=== PATIENT | female | born 1980 | race Caucasian/White ===

== ENCOUNTER 2017-08-12 10:59 | Inpatient (IN) ==
--- NOTE | 2017-08-11 22:36 | Discharge Summary ---
<Kadi Davis - Last Filed: 08/11/17 22:30> Date of Encounter: 08/11/17 - Discharge Diagnosis (1) Arthritis of knee, left Priority: Primary Status: Acute (2) Status post total knee replacement, left Priority: Primary Status: Acute - Hospital Course Hospital course: Ms. Wu is a 37 year old female - Time Spent with Patient Total time spent providing and/or coordinating discharge services: - Discharge Medications Home Medications: Aspirin Enteric Coated [Aspirin EC] 325 mg PO BID #20 tablet.dr 08/11/17 [Rx] OxyCODONE Immed Rel [Roxicodone 5 MG] 5 mg PO Q6HR PRN 7 Days #28 tablet [Rx] Albuterol Sulfate [Albuterol Inhaler] 2 puff IH Q4HR PRN 08/12/17 [History] Budesonide/Formoterol 160/4.5 [Symbicort 160/4.5] 1 puff IH BID 08/12/17 [ History] Cholecalciferol (D-3) [Vitamin D] 1,000 unit PO DAILY 08/12/17 [History] Cyclobenzaprine HCl 5 mg PO TID PRN 08/12/17 [History] Fexofenadine HCl 180 mg PO DAILY 08/12/17 [History] Multivitamin [One Daily Multivitamin] 1 tab PO DAILY 08/12/17 [History] Topiramate [Trokendi Xr] 25 mg PO DAILY 08/12/17 [History] Allergies/Adverse Reactions: 3 Allergy/AdvReac Type Severity Reaction Status Date / Time glycopyrrolate [From Robinul] Allergy Rash Verified 08/12/17 11:46 IV dye Allergy Rash Uncoded 08/12/17 11:46 Primary care physician: Pineda Winn MD - Patient Status Disposition: Home, Self-Care Condition: Good - Discharge Instructions Follow Up With: Pineda Winn MD [Primary Care Provider] - <Sachin Zuniga - Last Filed: 08/13/17 08:31> Orders not resulted at time of discharge: Pending orders 08/12/17 00:01 XR knee LT limited 1-2V [XR] Routine H/H [Hemoglobin and Hematocrit] [HEME] Routine Date of Encounter: 08/13/17 Time of Encounter: 08:31 - Discharge Diagnosis (1) Arthritis of knee, left Priority: Primary Status: Chronic (2) Status post total knee replacement, left Priority: Primary Status: Acute - Hospital Course Hospital course: Ms. Wu is a 37 year old female Status post revision left total knee The patient had an uneventful postoperative course. They received antibiotics and physical therapy and were discharged in stable condition. There will follow -up in the office in 2 weeks. - Time Spent with Patient Total time spent providing and/or coordinating discharge services: Primary care physician: Pineda Winn MD - Patient Status Functional capacity at discharge: uses cane/walker Overall status at discharge: patient is progressing back to baseline
[2017-08-12] MEDS ORDERED: CeFAZolin Syr 2,000MG/20 ML 2,000 MG/20 ML SYRINGE IVPB ONE (11:25)
[2017-08-12] MEDS ORDERED: Ringers Solution, Lactated 1,000 ML IVC SCH ×3 (11:30→17:40)
--- NOTE | 2017-08-12 11:31 | History & Physical Report ---
Date of Encounter: 08/12/17 Time of Encounter: 11:30 24 Hour HP Update - Instructions Instructions: If the History and Physical is less than 30 days old and was completed prior to A.M. admission and or procedure and has NOT been updated on calendar day of procedure please complete this update prior to performing procedure. - Update Patient reports changes in Medical Condition: No Changes in examination, assessment, or condition: No Changes in Medication: No Preop tests/diagnostics Reviewed: Yes Surgery Remains Indicated: Yes Consent for Planned Operative Procedure(s) Verified: Yes - Pre-Operative Checklist Preoperative Checklist Indicated: No Prophylactic Antibiotic Ordered: Yes Is VTE Prophylaxis Indicated?: Yes
--- NOTE | 2017-08-12 11:55 | Anesthesia Evaluation PreOp ---
Date of Encounter: 08/12/17 Time of Encounter: 11:53 - Past History Planned Operation: Total knee revision Cardiac History: Denies any Significant Hx Pulmonary History: Asthma PROGRAMMER DEVELOPER History: Denies Any Significant HX Other Medical History: Thyroid, GERD Anesthesia History: No Prior Anesthetic Complications Alcohol Use: none Drug use: none Medications and Allergies Aspirin Enteric Coated [Aspirin EC] 325 mg PO BID #20 tablet. 08/11/17 [Rx] OxyCODONE Immed Rel [Roxicodone 5 MG] 5 mg PO Q6HR PRN 7 Days #28 tablet [Rx] Albuterol Sulfate [Albuterol Inhaler] 2 puff IH Q4HR PRN 08/12/17 [History] Budesonide/Formoterol 160/4.5 [Symbicort 160/4.5] 1 puff IH BID 08/12/17 [ History] Cholecalciferol (D-3) [Vitamin D] 1,000 unit PO DAILY 08/12/17 [History] Cyclobenzaprine HCl 5 mg PO TID PRN 08/12/17 [History] Fexofenadine HCl 180 mg PO DAILY 08/12/17 [History] Multivitamin [One Daily Multivitamin] 1 tab PO DAILY 08/12/17 [History] Topiramate [Trokendi Xr] 25 mg PO DAILY 08/12/17 [History] 3 Allergy/AdvReac Type Severity Reaction Status Date / Time glycopyrrolate [From Bj] Allergy Rash Verified 08/12/17 11:46 IV dye Allergy Rash Uncoded 08/12/17 11:46 - Meds/Allergy Pre-op Review Medications Reviewed: Yes Allergies Reviewed: Yes Beta Blockers on Current Med List: No Anesthesia Results - Labs Laboratory Tests 08/06/17 08/06/17 08/06/17 11:05 11:05 11:05 WBC 7.3 Hgb 12.7 Hct 36.2 Plt Count 260 PT 10.7 INR 1.0 APTT 32.6 Sodium 139 Potassium 3.7 Chloride 108 H Carbon Dioxide 23 BUN 12 Creatinine 0.69 Est GFR ( Amer) > 60 Est GFR (Non-Af Amer) > 60 BUN/Creatinine Ratio 17 Serum , Qual 08/06/17 11:05 WBC Hgb Hct Plt Count PT INR APTT Sodium Potassium Chloride Carbon Dioxide BUN Creatinine Est GFR ( Amer) Est GFR (Non-Af Amer) BUN/Creatinine Ratio Serum , Qual Negative Anesthesia Exam Last Vital Signs Temp 98.7 F 08/12/17 11:21 Pulse 83 08/12/17 11:21 Resp 18 08/12/17 11:21 BP 113/81 08/12/17 11:21 Pulse Ox 98 08/12/17 11:21 Weight: 78 kg NPO (# of Hours): > 8 hrs - HEENT Pupil (Motor): Pupils equal, EOMI Mallampati: III Teeth: Normal Oral Opening: Greater than 3 - PROGRAMMER DEVELOPER LOC: Oriented - Cardiac Rhythm: Regular Murmur: None - Pulmonary Breath Sounds: bilateral Clear Respiratory Effort: Symmetrical Anesthesia Assess/Plan ASA Score: 2 Modified [place] Scale for Level of Consciousness: Cooperative, oriented, and tranquil Anesthetic Plan: General, Regional Monitoring Plan: Standard Monitors Recovery Plan: PACU
[2017-08-12] MEDS ORDERED: ROPIVACAINE HCL/PF 0.5% 30 ML VIAL ONE (12:18)
[2017-08-12] MEDS ORDERED: Bupivacaine/Clonidine Syringe 1 EACH SYRINGE ONE (12:23)
[2017-08-12] MEDS ORDERED: *HR* Midazolam HCl 2 MG/2 ML VIAL ONE (12:28)
[2017-08-12] MEDS ORDERED: *HR* FentaNYL (PF) 100 MCG/2 ML VIAL ONE ×2 (12:28→14:13)
--- NOTE | 2017-08-12 12:46 | Anesthesia Procedures ---
Date of Encounter: 08/12/17 Time of Encounter: 12:44 Procedures: Anesthesia - Nerve Block Procedure Date: 08/12/17 Time: 12:44 Allergies/Adv Reactions: glyco, iv dye Surgical Procedure: left robo tka Checklist: Correct Patient Identifier, Correct procedure, History checked Correct side: Left Blood Thinner: No Monitor Applied: EKG, BP, Pulse Oximetry Supplemental Oxygen via Nasal Cannula (L/min): 2 Sedation: Versed (mg): 2 Sedation: Fentanyl (mcg): 100 Indication: Post Op Analgesia Pre-op Neuro Deficits: No Block Type: Other (ipack 20ml, adductor canal 30ml) Catheter placed: No Sterile Technique: Yes Ultrasound used: Yes Anatomy identified: Yes Visual spread of Local: Yes Neuro Stimulation: No Blood on Needle Aspiration: No Smooth Injection of Local: Yes Pain with Injection of Local: No Prep: Chlorhexadine Needle: 21 x 100 mm Stimuplex Local: 0.25% Bupivicaine w/Clonidine 20 mcg/cc (20ml ipack), Ropivacaine, Other (decadron 8mg) Volume (cc): 50 Number of Attempts: 1 Complications: None/effective block Vitals: Vital Signs/O2 Sat/Glucose, Most Recent Temp Pulse Resp BP Pulse Ox 98.7 F 82 16 125/95 99 08/12/17 11:21 08/12/17 12:44 08/12/17 12:44 08/12/17 12:44 08/12/17 12:44
[2017-08-12] MEDS ORDERED: Ondansetron 4 MG/2 ML VIAL ONE (13:25)
[2017-08-12] MEDS ORDERED: *HR* Propofol 200 MG/20 ML VIAL IVP ONE (13:25)
[2017-08-12] MEDS ORDERED: Dexamethasone 4 MG/ML VIAL ONE (13:25)
[2017-08-12] MEDS ORDERED: Lidocaine -MPF 2% 2 ML VIAL ONE (13:25)
[2017-08-12] MEDS ORDERED: Ethanol\\Acetic Acid\\Na Ace\\Ben 1,000 ML IRRIG.SOLN IR ONE (13:43)
[2017-08-12] MEDS ORDERED: Ondansetron 4 MG/2 ML VIAL IVP ONE (13:45)
[2017-08-12] MEDS ORDERED: *HR* Promethazine 25 MG/ML VIAL IVP PRN (13:45)
[2017-08-12] MEDS ORDERED: Naloxone 0.4 MG/ML INJ IVP PRN ×2 (13:45→17:40)
[2017-08-12] MEDS ORDERED: *HR* Meperidine 25 MG/ML SYRINGE IVP PRN (13:45)
[2017-08-12] MEDS ORDERED: *HR* HYDROmorphone 2 MG TABLET PO PRN (13:45)
[2017-08-12] MEDS ORDERED: *HR* OxyCODONE Immed Rel 5 MG TABLET PO PRN (13:45)
[2017-08-12] MEDS ORDERED: Albuterol 2.5 MG/3 ML NEBULIZER IH ONE (13:45)
--- NOTE | 2017-08-12 15:01 | Orthopedic Operative Note ---
Date of procedure: 08/12/17 Pre-op diagnosis: Left knee loosening unicondylar knee replacement, left knee arthritis Post-op diagnosis: same Procedure: Procedure: Left revision robotic-assisted Total knee replacement Estimated blood loss: 400 cc Hardware: Metal and polyethylene replacement. Press-fit [place] Femur: 2 Tibia: 2 PS insert: 16 Patella: 36 Exam Under anesthesia: 5 degree hyperextension 4 degree valgus as calculated by the robot full flexion and no instability Procedural Notes: Loose femoral and tibial components left lateral unicondylar, grade 3 arthritic changes patellofemoral joint. Operative procedure: The patient was brought to the operating room and placed on the operating room table. After general anesthesia was administered the operative knee was examined. Findings were noted in the exam under anesthesia. The operative extremity was prepped and draped in sterile surgical fashion. The patient received IV antibiotics prior to skin incision. A standard midline incision was made centered over the patella. The incision was made through the old incision, through the skin and subcutaneous tissue. A medial parapatellar tendon approach was performed. Care was taken to preserve tissue along the medial aspect of the patella. And to protect the patella tendon. The deep MCL was released off the medial tibia. The infra patella fat pad was excised. The patella was everted and cut was made at the level of the insertion of the quadriceps and patella tendon. The patella was sized 36 the guide was seated and the lug holes are drilled. Knee was brought into flexion. Patient noted to have grade 3 changes undersurface of patella and trochlear groove. Steinmann pins were placed in the tibia and the femur for the tibial and femoral arrays respectively. Checkpoints were also placed in the tibia and the femur for calculation purposes. The knee including the femur and the tibial registered. Osteophytes , ACL and PCL were excised at this point. Extension and flexion were assessed with a valgus stress components were adjusted on the computer to balance the knee. The components were then removed, first the Patty then the femoral and tibial component both components were loose and easily removed without bone loss. Femoral cuts were made first with robotic assistance, these included the anterior cut posterior cuts chamfer cuts. Tibial cut was then performed with robotic assistance as well. Bone fragments were removed, as well as the medial and lateral meniscus. The size 2 femoral guide was seated box cut was made lug holes are drilled. The size 2 tibial tray was seated and prepared with the fin cutter. Trial reduction with the 16 PS Patty revealed extension of 0 degree and 2 degree valgus full flexion. No varus valgus instability. Trial reduction revealed excellent patella tracking. All trial components were removed all bony surfaces were irrigated. The Tibia was seated followed by the femur, The Patty size 16 was seated and secured patella. Patient had similar findings for motion and stability. The knee was closed by the PA. The knee was then irrigated out with 2 L of pulse irrigation. The extensor mechanism was closed with #2 FiberWire suture and #2 PDS suture. The subcutaneous tissue was then irrigated and closed deep with #1 PDS suture superficially with 0 PDS suture and skin was closed with zip tie The patient was then placed in a sterile dressing and a postoperative brace extubated and transferred to recovery room in stable condition. Anesthesia: GETA Surgeon: Sachin Zuniga Was there an operations and intelligence assistant present: Yes Hvac/R Service Technician: Kadi Davis Estimated blood loss (cc): 400 Condition: stable Disposition: PACU
[2017-08-12] MEDS: *HR* Morphine 2 MG/ML SYRINGE IVP PRN ×2 (15:42→15:58)
[2017-08-12 16:23] LABS: Hemoglobin 13.5 g/dL (11.5-15.4)
--- NOTE | 2017-08-12 16:40 | Anesthesia Evaluation Post Op ---
Date of Encounter: 08/12/17 Time of Encounter: 16:39 - Vital Signs Vital Signs: Last Vital Signs Temp 99.0 F 08/12/17 15:53 Pulse 115 08/12/17 16:33 Resp 12 08/12/17 16:33 BP 134/90 08/12/17 16:33 Pulse Ox 99 08/12/17 16:33 - Lungs Lungs: Clear Ascult./Percussion - Airway Airway: Non-obstructed - Cardiovascular Regular Rate - Mental Status Mental Status: Alert & Oriented, Answers Appropriately - Pain Pain Scale: 4 - Nausea Vomiting Nausea Vomiting: Responds to treatment with IV Meds - Hydration Hydration: Ice chips - Discharge PostOp Status: Transfer Patient to floor
[2017-08-12] MEDS ORDERED: Temazepam 15 MG CAPSULE PO PRN (17:40)
[2017-08-12] MEDS ORDERED: Sennosides 8.6 MG TABLET PO PRN (17:40)
[2017-08-12] MEDS ORDERED: traMADol 50 MG TABLET PO PRN (17:40)
[2017-08-12] MEDS ORDERED: Ondansetron 4 MG/2 ML VIAL IVP PRN (17:40)
[2017-08-12] MEDS ORDERED: MOM Conc 10 ML UD.LIQ PO PRN (17:40)
[2017-08-12] MEDS ORDERED: *HR* Enoxaparin 30 MG/0.3 ML SYRINGE SQ SCH (18:00)
[2017-08-12] MEDS: *HR* OxyCODONE Immed Rel 5 MG TABLET PO PRN (19:48)
[2017-08-12] MEDS: *HR* Enoxaparin 30 MG/0.3 ML SYRINGE SQ SCH (19:53)
[2017-08-12] MEDS: Budesonide/Formoterol 160/4.5 MDI IH SCH (20:15)
[2017-08-13] MEDS: *HR* OxyCODONE/APAP 5/325 TABLET PO PRN ×2 (01:10→08:08)
[2017-08-13 01:20] LABS: Hemoglobin 11.7 g/dL (11.5-15.4)
[2017-08-13 01:34] LABS: BUN/Creatinine Ratio 17 (6-26); Blood Urea Nitrogen 10 mg/dL (6-20); Calcium 8.6 mg/dL (8.6-10.3); Carbon Dioxide 22 mEq/L (23-29); Chloride 105 mEq/L (98-107); Glucose 165 mg/dL (70-105); Osmolality,Calculated 281 (280-300); Potassium 4.2 mEq/L (3.5-5.1); Sodium 134 mEq/L (136-145); eGFR For African Americans > 60 (> 60); eGFR For Non-African Americans > 60 (> 60)
[2017-08-13] MEDS: *HR* Enoxaparin 30 MG/0.3 ML SYRINGE SQ SCH (05:42)
--- NOTE | 2017-08-13 08:32 | Orthopedics Progress Note ---
Date of Encounter: 08/13/17 Time of Encounter: 08:31 - Assessment and Plan (1) Arthritis of knee, left Current Visit: No Status: Chronic (2) Status post total knee replacement, left Current Visit: No Status: Acute Subjective Interval history: Patient was seen this morning doing well without complaints. Afebrile vital signs stable. Operative extremity: Neurovascularly intact Dressing clean dry and intact Calves nontender Assessment and plan: Continue with postoperative care Hematocrit 33 discharged today Objective Vital signs: Vital Signs Temp Pulse Resp BP Pulse Ox 08/13/17 06:28 98.7 F 85 16 119/81 99 08/13/17 03:10 98.6 F 100 16 119/80 97 08/12/17 22:44 97.9 F 109 16 125/85 96 08/12/17 20:15 16 98 08/12/17 18:52 98.5 F 107 16 134/83 98 08/12/17 18:10 98.5 F 110 12 111/83 98 08/12/17 17:05 97.7 F 106 12 131/86 98 08/12/17 16:33 115 12 134/90 99 08/12/17 16:18 116 12 134/92 97 08/12/17 16:03 108 12 136/96 98 08/12/17 15:53 99.0 F 109 12 134/92 97 08/12/17 15:43 104 10 123/84 97 08/12/17 15:33 110 10 120/93 98 08/12/17 15:23 98.5 F 120 16 118/83 100 08/12/17 13:49 80 18 124/95 100 08/12/17 13:34 83 16 114/83 100 08/12/17 13:20 71 16 112/82 100 08/12/17 12:59 76 16 117/88 100 08/12/17 12:44 82 16 125/95 99 08/12/17 12:35 96 16 126/95 96 08/12/17 11:21 98.7 F 83 18 113/81 98 Intake and Output 08/12/17 08/13/17 08/13/17 23:59 07:59 15:59 Intake Total 100 / 100 300 / 300 Output Total 700 / 700 Balance 100 / 100 -400 / -400 Intake: IV Fluids 100 / 100 Ancef 2,000 MG In 0.9 % Sodium 100 / 100 Chloride 100 ML @ 200 mls/hr IVPB Q8H TON Rx#:[id number] Oral 300 / 300 Output: Urine 700 / 700 Other: # Voids 1 1 - Labs CBC & BMP: 08/13/17 00:57 08/13/17 00:57 Labs: Abnormal lab results Hct 33.0 % (35.3-44.9) L 08/13/17 00:57 Sodium 134 mEq/L (136-145) L 08/13/17 00:57 Carbon Dioxide 22 mEq/L (23-29) L 08/13/17 00:57 Creatinine 0.58 mg/dL (0.60-1.20) L 08/13/17 00:57 Glucose 165 mg/dL (70-105) H 08/13/17 00:57 - VTE Documentation of Mechanical Device: Venous foot pump, device Consult Discharge Plan - Plan Referrals: Pineda Winn MD [Primary Care Provider] -
[2017-08-13] MEDS ORDERED: Cholecalciferol (D-3) 1,000 UNIT TABLET PO SCH (09:00)
[2017-08-13] MEDS ORDERED: Topiramate 25 MG CAP.SPRINK PO SCH (09:00)
[2017-08-13] MEDS ORDERED: TOPIRAMATE 25 MG PO SCH (09:00)
[2017-08-13] MEDS ORDERED: Multivit/Ca/Min/Fe/FA 1 TAB TABLET PO SCH (09:00)
[2017-08-13] MEDS ORDERED: Loratadine 10 MG TABLET PO SCH (09:00)
[2017-08-13] MEDS: Budesonide/Formoterol 160/4.5 MDI IH SCH (10:43)
[2017-08-13 10:49] VITALS: BP 117/83
[2017-08-13] MEDS: *HR* OxyCODONE Immed Rel 5 MG TABLET PO PRN (11:49)
== END 2017-08-13 13:02 | disposition home or self-care (01) | DRG 468 ==
LOC: SAMDAY 10:59 → 3NENU 18:20
PROVIDERS: ADMIT Orthopaedic Surgery; ATTEND Orthopaedic Surgery